=== PATIENT | female | born 1970 | race Caucasian/White ===

== ENCOUNTER 2016-11-05 09:11 | Emergency (ER) | payer BC, OTHER ==
[2016-11-05 09:30] VITALS: BP 112/77
--- NOTE | 2016-11-05 11:36 | UC ---
Complaint Female HPI - HPI Summary HPI Summary: 46 y/o female present to the urgent care c/o pain and burning and frequency on urination since last night. She reports she took 1 tab of Azo last night to alleviate the burning on urination. Pt denies fever, lower back pain, SOB, chest pain, N/V/D. - History Of Current Complaint Chief Complaint: UCGeneralIllness Stated Complaint: UTI Time Seen by Provider: 11/05/16 11:17 Hx Obtained From: Patient Hx Last Menstrual Period: Hx of Hysterectomy 2007 ?: No Onset/Duration: Sudden Onset, Lasting Hours, Still Present Timing: Constant Severity Initially: Moderate Severity Currently: Moderate Pain Intensity: 6 Pain Scale Used: 0-10 Numeric Character: Burning Alleviating Factor(s): Meds - Pt took 1 tab of Azo to alleviate symptoms Associated Signs And Symptoms: Positive: Negative. Negative: Fever, Back Pain, Vaginal Bleeding/Discharge, Vaginal Discharge, Nausea, Vomiting(# Of Episodes =) , Genital Swelling - Risk Factors Ectopic Risk Factor: Negative Ovarian Torsion Risk Factor: Hysterectomy - Allergies/Home Medications Allergies/Adverse Reactions: Allergies Allergy/AdvReac Type Severity Reaction Status Date / Time Penicillins Allergy Severe rash and Verified 08/02/12 15:33 swelling Home Medications: Home Medications Cholecalciferol [Vitamin D] 11/05/16 [History] FLUoxetine CAP* [Prozac CAP*] 11/05/16 [History] Phenazopyridine TAB* [Pyridium 100 mg TAB*] 11/05/16 [History] clonazePAM TAB(*) [Klonopin TAB(*)] 11/05/16 [History Confirmed 11/05/16] PMH/Surg Hx/FS Hx/Imm Hx Previously Healthy: Yes Psychological History: Anxiety, Depression - Surgical History Surgical History: Yes Surgery Procedure, Year, and Place: hysterectomy y years ago - Family History Known Family History: Positive: Cardiac Disease - Social History Alcohol Use: Rare Substance Use Type: None Smoking Status (MU): Former Smoker Review of Systems Skin: Negative Eyes: Negative ENT: Negative Respiratory: Negative Cardiovascular: Negative Gastrointestinal: Negative Genitourinary: Dysuria, Frequency Motor: Negative Neurovascular: Negative Musculoskeletal: Negative Neurological: Negative Psychological: Negative All Other Systems Reviewed And Are Negative: Yes Physical Exam Triage Information Reviewed: Yes Appearance: Well-Appearing, No Pain Distress, Well-Nourished, Obese Vital Signs: Initial Vital Signs Temp 98 F 11/05/16 09:28 Pulse 76 11/05/16 09:28 Resp 18 11/05/16 09:28 BP 112/77 11/05/16 09:28 Pulse Ox 99 11/05/16 09:28 Vital Signs Reviewed: Yes Eye Exam: Normal Eyes: Positive: Conjunctiva Clear - PERRLA, EOMI, Fundi grossly normal ENT Exam: Normal ENT: Positive: Normal ENT inspection, Hearing grossly normal, Pharynx normal, TMs normal Dental Exam: Normal Neck exam: Normal Neck: Positive: Supple, Nontender, No Lymphadenopathy Respiratory Exam: Normal Respiratory: Positive: Chest non-tender, Lungs clear, Normal breath sounds Cardiovascular Exam: Normal Cardiovascular: Positive: RRR, No Murmur, Pulses Normal Abdominal Exam: Normal Abdomen Description: Positive: Nontender, No Organomegaly, Soft. Negative: CVA Tenderness (R), CVA Tenderness (L) Bowel Sounds: Positive: Present Musculoskeletal Exam: Normal Musculoskeletal: Positive: Strength Intact, ROM Intact, No Edema Neurological Exam: Normal Psychological Exam: Normal Skin Exam: Normal Complaint Female Dx - Course Course Of Treatment: 46 y/o female c/o burnung and frequncy on urination since last night. Hx obtained. PE WNL. Pt took i tab of Pyridium last night to alleviate symptoms, unable to perform UA, Urine sent to lab for culture and Microscopic UA. Pt Rx Macrobid 100mg PO BID x 5 days, and Pyridium 100mg PO. Pt advised if culture result shows any resistance to antibiotic, she wiil receive a call from the clinic to change Antibiotic. Pt advised to increase fluid intake, if symptoms do not improve to return for further evaluation and treatment. Pt understood and agreed. - Differential Dx/Diagnosis Differential Diagnosis/HQI/PQRI: Cervicitis, Renal Colic, Ureteral Stone, Urinary Tract Infection Provider Diagnoses: Urinary tract infection Discharge - Discharge Plan Condition: Stable Disposition: HOME Prescriptions: Nitrofurantoin Monohyd Macro [Macrobid] 100 mg PO BID #10 cap Phenazopyridine TAB* [Pyridium 100 mg TAB*] 100 mg PO TID #6 tab Patient Education Materials: Urinary Tract Infection in Women (ED) Referrals: Kassandra Fernando MD [Primary Care Provider] - Additional Instructions: Please take full course of antibiotic. Urine will be sent to lab for culture. If resistance to antibiotic Rx today appears on culture you will receive a call from us to change treatment. Please increase fluid intake, Tcontinue taking Pyridium to alleviate symptoms, Do Kegel exercises. If symptoms persists despite antibiotic please return to the urgent care or f/u with your PCP for further treatment.
[2016-11-05 16:49] LABS: Urine Bacteria 1+ (Absent); Urine Bilirubin Negative (Negative); Urine Glucose Negative (Negative); Urine Nitrite Positive (Negative)
--- NOTE | 2016-11-08 13:00 | UC ---
Progress - Progress Note Progress Note: call Patient and if sx have resolved may stop antibiotics, if sx continuing follow with pcp or return to urgent care as culture doses not support dx of UTI and may need additional evaluation
== END 2016-11-05 11:39 | disposition home or self-care (01) ==
LOC: UCEAST 09:11
DX: F41.8 Other specified anxiety disorders (principal); Z87.891 Personal history of nicotine dependence; N39.0 Urinary tract infection, site not specified; B96.20 Unspecified Escherichia coli [E. coli] as the cause of diseases classified elsewhere; Z16.11 Resistance to penicillins; Z16.29 Resistance to other single specified antibiotic; Z16.24 Resistance to multiple antibiotics
CPT/HCPCS: 81003; 81015; 87077; 87086; 87186; 99202; G0463

== ENCOUNTER 2017-02-16 15:51 | Emergency (ER) | payer BC, OTHER ==
[2017-02-16 16:15] VITALS: BP 112/73
--- NOTE | 2017-02-16 16:24 | UC ---
Respiratory Complaint HPI - HPI Summary HPI Summary: Pt here w/ URI sx x 2 days. Rhinorrhea w/ PND, nasal congestion. She also has B/ L otalgia from sinus pressure and soreness along anterior neck LN's. Dry cough started today - denies chest pain, SOB, wheezing. Denies fever, chills, N/V/D, rash, ab pain, neck pain, stiffness. 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 Imms are UTD. She's tried cough drops, mucinex , ibuprofen and neti pot w/o relief. - History of Current Complaint Chief Complaint: UCRespiratory Stated Complaint: URI Time Seen by Provider: 02/16/17 15:58 Hx Obtained From: Patient Hx Last Menstrual Period: hysterectomy - Allergies/Home Medications Allergies/Adverse Reactions: Allergies Allergy/AdvReac Type Severity Reaction Status Date / Time Penicillins Allergy Severe rash and Verified 02/16/17 15:57 swelling PMH/Surg Hx/FS Hx/Imm Hx Previously Healthy: Yes - Surgical History Surgical History: Yes Surgery Procedure, Year, and Place: hysterectomy y years ago - Family History Known Family History: Positive: Cardiac Disease - Social History Occupation: Employed Full-time - teacher Lives: With Family Alcohol Use: Rare - 2 x year Substance Use Type: None Smoking Status (MU): Former Smoker Review of Systems Constitutional: Negative Skin: Negative Eyes: Negative ENT: Other - see HPI Respiratory: Cough - dry as in HPI Cardiovascular: Negative Gastrointestinal: Negative Genitourinary: Negative Motor: Negative Neurovascular: Negative Musculoskeletal: Negative Neurological: Negative Psychological: Anxious Is Patient Immunocompromised?: No All Other Systems Reviewed And Are Negative: Yes Physical Exam Triage Information Reviewed: Yes Appearance: Well-Nourished, Other: - appears to have upper resp congestion w/ facial pressure Vital Signs: Initial Vital Signs Temp 97.6 F 02/16/17 15:54 Pulse 74 02/16/17 15:54 Resp 16 02/16/17 15:54 BP 112/73 02/16/17 15:54 Pulse Ox 99 02/16/17 15:54 Vital Signs Reviewed: Yes Eye Exam: Normal Eyes: Positive: Conjunctiva Clear. Negative: Conjunctiva Inflamed, Discharge ENT Exam: Normal ENT: Positive: Normal ENT inspection, Hearing grossly normal, Nasal congestion, TMs normal. Negative: Nasal drainage Dental Exam: Normal Dental: Positive: Abscess @ Neck exam: Normal Neck: Positive: Supple, Nontender, No Lymphadenopathy Respiratory Exam: Normal Respiratory: Positive: Lungs clear, Normal breath sounds, No respiratory distress. Negative: Crackles, Rhonchi, Stridor, Wheezing Cardiovascular Exam: Normal Cardiovascular: Positive: RRR, No Murmur Abdominal Exam: Normal Abdomen Description: Positive: Nontender, No Organomegaly, Soft Bowel Sounds: Positive: Present Musculoskeletal Exam: Normal Musculoskeletal: Positive: Strength Intact, ROM Intact Neurological Exam: Normal Neurological: Positive: Alert Psychological Exam: Other - anxious Skin Exam: Normal Diagnostic Evaluation - Laboratory O2 Sat by Pulse Oximetry: 99 Respiratory Course/Dx - Course Course Of Treatment: Suspect acute viral URI - conservative care - monitor for danger s/sx. - Differential Dx/Diagnosis Provider Diagnoses: URI Discharge - Discharge Plan Condition: Stable Disposition: HOME Patient Education Materials: Upper Respiratory Infection (ED) Forms: *Work Release Referrals: Kassandra Fernando MD [Primary Care Provider] - Additional Instructions: You appear to have a viral URI. This may last 7-10 days. To better control your sinus pressure, you may try Sudafed and Afrin nasal spray - follow instruction as to avoid overuse. Rest, stay hydrated, follow-up with PCP if symptoms persist *If worse, return to or go to ED Nasal wash (netti pot) & throat gargle 2 x day with 8 ounces of warm water + 1/ 4 teaspoon of salt Drink 60+ ounces of water daily Sleep 8+ hours per night Avoid Dairy and sugar Hot herbal/decaf tea with lemon & honey Chicken broth (preferably organic, free range chicken) Humidifier in house, but especially near bed at night Try a facial steam with or without eucalyptus essential oil Consider taking Vitamin D3 5,000iu and Vitamin C 1,000mg every day during illness
== END 2017-02-16 16:50 | disposition home or self-care (01) ==
LOC: UCEAST 15:51
DX: J06.9 Acute upper respiratory infection, unspecified (principal); Z88.0 Allergy status to penicillin
CPT/HCPCS: 99211; G0463